=== PATIENT | male | born 1960 | race Caucasian/White ===

== ENCOUNTER 2021-02-19 07:07 | Emergency (ER) | payer SELFPAY ==
[2021-02-19 07:25] VITALS: BP 151/104; PULSE 93; TEMP 98; BMI 32.3
[2021-02-19] MEDS ORDERED: NAPROXEN 500 MG TABLET PO ONE (07:40)
[2021-02-19] MEDS ORDERED: NAPROXEN 500 MG TABLET ONE (08:02)
== END 2021-02-19 08:55 | disposition home or self-care (01) ==
LOC: JER 07:07
DX: M79.671 Pain in right foot (principal); M79.672 Pain in left foot
CPT/HCPCS: 73630-TC-LT; 73630-TC-RT-FY; 99284-25